=== PATIENT | female | born 1970 | race Caucasian/White ===

== ENCOUNTER 2021-07-01 22:16 | Emergency (ER) | payer OTHER ==
[2021-07-01 23:52] LABS: HEMOGLOBIN 11.2 gm/dl (12.3-15.3); RED BLOOD COUNT 4.46 M/UL (4.00-5.10); WHITE BLOOD COUNT 4.1 K/UL (4.5-11.0)
[2021-07-02 00:12] LABS: BUN/CREATININE RATIO 28 (0-10)
== END 2021-07-02 03:40 | disposition home or self-care (01) ==
LOC: ER1 22:16
PROVIDERS: Physician Assistant Medical
DX: E11.65 Type 2 diabetes mellitus with hyperglycemia (principal); I51.9 Heart disease, unspecified; E11.40 Type 2 diabetes mellitus with diabetic neuropathy, unspecified; Z79.4 Long term (current) use of insulin; F17.210 Nicotine dependence, cigarettes, uncomplicated; Z86.59 Personal history of other mental and behavioral disorders
CPT/HCPCS: 36600; 80053; 81001; 82009; 82550; 82553; 82803; 82962; 83690; 84484; 85025; 93005; 96374; 99285; J2405

== ENCOUNTER 2021-07-04 07:51 | Observation (INO) | payer OTHER ==
[~2021-07-04] VITALS: Ht 170.2 cm; Wt 65.3 kg
[2021-07-04 08:38] LABS: HEMOGLOBIN 10.8 gm/dl (12.3-15.3); RED BLOOD COUNT 4.38 M/UL (4.00-5.10); WHITE BLOOD COUNT 5.1 K/UL (4.5-11.0)
[2021-07-04 08:51] LABS: BUN/CREATININE RATIO 15 (0-10)
[2021-07-04] MEDS ORDERED: VISTARIL50 MG PO (14:12)
[2021-07-04] MEDS ORDERED: AMIODARONE HCL200 MG PO (14:13)
[2021-07-04] MEDS ORDERED: BUSPIRONE HCL15 MG PO (14:14)
[2021-07-04] MEDS ORDERED: CYCLOBENZAPRINE10 MG PO (14:14)
[2021-07-04] MEDS ORDERED: GABAPENTIN300 MG PO (14:15)
[2021-07-04] MEDS ORDERED: FUROSEMIDE20 MG PO (14:15)
[2021-07-04] MEDS ORDERED: IBU800 MG PO (14:16)
[2021-07-04] MEDS ORDERED: HUMALOG100 UNIT/3 SQ (14:17)
[2021-07-04] MEDS ORDERED: LANTUS SOL100 UNIT/1 SQ (14:17)
[2021-07-04] MEDS ORDERED: MIDODRINE HCL5 MG PO (14:18)
[2021-07-04] MEDS ORDERED: METOPROLOL SUC100 MG PO (14:18)
[2021-07-04] MEDS ORDERED: PROTONIX 40 MG40 M1 PO (14:19)
[2021-07-04] MEDS ORDERED: MIRALAX 119 GR119 GM PO (14:21)
[2021-07-04] MEDS ORDERED: XARELTO20 MG PO (14:22)
[2021-07-04] MEDS ORDERED: TRAZODONE HCL100 MG PO (14:22)
[2021-07-04] MEDS ORDERED: SPIRONOLACTONE50 MG PO (14:22)
[2021-07-04] MEDS ORDERED: DILTIAZEM 24HR180 M1 PO (14:24)
[2021-07-04] MEDS ORDERED: DULOXETINE HCL30 MG PO (14:25)
[2021-07-04] MEDS ORDERED: ASPIRIN EC81 MG PO (14:25)
[2021-07-04] MEDS ORDERED: GLIPIZIDE XL10 MG PO (14:26)
[2021-07-04] MEDS ORDERED: LISINOPRIL20 MG PO (14:26)
[2021-07-04] MEDS ORDERED: OMEPRAZOLE40 MG PO (14:27)
[2021-07-04] MEDS ORDERED: LORATADINE10 MG PO (14:28)
[2021-07-05 02:29] LABS: HEMOGLOBIN 10.4 gm/dl (12.3-15.3); RED BLOOD COUNT 4.21 M/UL (4.00-5.10); WHITE BLOOD COUNT 4.5 K/UL (4.5-11.0)
[2021-07-05 04:21] LABS: BUN/CREATININE RATIO 23 (0-10)
== END 2021-07-05 15:43 | disposition home or self-care (01) ==
LOC: ER1 07:51 → M/S 12:05 → CDU 12:05 → M/S 17:20
PROVIDERS: Emergency Medicine; Physician Assistant; ADMIT Internal Medicine
DX: R07.89 Other chest pain (principal); I48.0 Paroxysmal atrial fibrillation; I13.0 Hypertensive heart and chronic kidney disease with heart failure and stage 1 through stage 4 chronic kidney disease, or unspecified chronic kidney disease; E11.22 Type 2 diabetes mellitus with diabetic chronic kidney disease; N18.9 Chronic kidney disease, unspecified; I50.9 Heart failure, unspecified; E11.40 Type 2 diabetes mellitus with diabetic neuropathy, unspecified; E78.5 Hyperlipidemia, unspecified; D50.9 Iron deficiency anemia, unspecified; E83.42 Hypomagnesemia; K74.60 Unspecified cirrhosis of liver; Z20.822 Contact with and (suspected) exposure to COVID-19; Z79.01 Long term (current) use of anticoagulants; F17.210 Nicotine dependence, cigarettes, uncomplicated; F12.10 Cannabis abuse, uncomplicated; F15.10 Other stimulant abuse, uncomplicated; Z82.49 Family history of ischemic heart disease and other diseases of the circulatory system
CPT/HCPCS: 36415; 71045; 80053; 82550; 82553; 82728; 82962; 83540; 83550; 83735; 83880; 84484; 85025; 87040; 93005; 96374; 96376; 99285; G0378; J3475; Q0177; U0002